=== PATIENT | female | born 1955 | race Caucasian/White ===

== ENCOUNTER → 2019-03-26 | Outpatient (CLI) | payer BC ==
[~2019-03-26] MED LIST: ASPI-1471 PO; CALC-1 PO; FLUT16SP19 NS; LISI2.5T60 PO
--- NOTE | 2019-03-27 15:56 | RADIOLOGY IMAGING REPORT ---
FACILITY: [facility] [place] PATIENT NAME: MICHOACANO DUFF : [id number] MR: [id number]: [id number] EXAM DATE: [id number] ORDERING PHYSICIAN: RUTHY KEY TECHNOLOGIST: Lesley Zhu PROCEDURE: BILATERAL DIGITAL SCREENING MAMMOGRAM WITH CAD ASSISTED INTERPRETATION & 3D TOMOSYNTHESIS. REASON FOR STUDY: Screening. COMPARISON: 11/26/2015 & 11/25/2013. VIEWS OBTAINED: 2D & 3D full field CC & MLO projections. BREAST DENSITY: The breast tissue demonstrates scattered fibroglandular tissue elements. MAMMOGRAM FINDINGS: There is no suspicious mass, calcification, or architectural distortion. IMPRESSION: BIRADS 1: Negative. DIAGNOSTIC CATEGORY 1--NEGATIVE. RECOMMENDATIONS: ROUTINE MAMMOGRAM AND CLINICAL EVALUATIONIN 1YR. Dictated by: Kg Tomlinson M.D. on 03/27/2019 at 13:11 Transcribed by: MICHELLE on 03/27/2019 at 14:36 Approved by: gK Tomlinson M.D. on 03/27/2019 at 15:51 [facility]
== END ==
LOC: MAMO 02:03
PROVIDERS: ATTEND Family Medicine
DX: Z12.31 Encounter for screening mammogram for malignant neoplasm of breast (principal)
CPT/HCPCS: 77063; 77067